=== PATIENT | female | born 1970 | race Caucasian/White ===

== ENCOUNTER → 2016-07-06 | Outpatient (CLI) | payer BC ==
--- NOTE | 2016-07-07 07:56 | MM ---
Reason for exam: screening (asymptomatic). Baseline mammogram. Physical Findings: Nurse did not find any significant physical abnormalities on exam. MG Screening Mammo w CAD Bilateral CC and MLO view(s) were taken. Finding: There is a 12 mm high density mass in the upper outer quadrant of the left breast. ASSESSMENT: Incomplete: need additional imaging evaluation, BI-RAD 0 RECOMMENDATION: Special view mammogram of the left breast. If lesion persists on supplemental views, image directed ultrasound is recommended. [facility] will attempt to contact patient to return for supplemental views and ultrasound if indicated.
== END | disposition home or self-care (01) ==
LOC: RADMAMWWP 09:54
PROVIDERS: ATTEND Family Medicine
DX: Z12.31 Encounter for screening mammogram for malignant neoplasm of breast (principal); R92.2 Inconclusive mammogram

== ENCOUNTER → 2016-07-15 | Outpatient (CLI) | payer BC ==
--- NOTE | 2016-07-15 11:06 | MM ---
Reason for exam: additional evaluation requested from abnormal screening. Last mammogram was performed less than 1 month ago. Physical Findings: Nurse did not find any significant physical abnormalities on exam. MG 3D Work Up W/Cad LT LM, spot compression MLO, and spot compression CC view(s) were taken of the left breast. Prior study comparison: July 06, 2016, bilateral MG screening mammo w CAD. The breast tissue is heterogeneously dense. This may lower the sensitivity of mammography. The upper outer focal asymmetry appear to disperse on spot tomosynthesis views. These results were verbally communicated with the patient and result sheet given to the patient on 07/15/16. ASSESSMENT: Incomplete: need additional imaging evaluation, BI-RAD 0 RECOMMENDATION: Ultrasound of the left breast. (upper outer quadrant)
--- NOTE | 2016-07-15 11:08 | USB ---
Reason for exam: additional evaluation requested from abnormal screening. US Breast Workup Limited LT Left breast ultrasound demonstrates a 0.36 x 0.22 x 0.50cm lesion too small to characterize at 3 o'clock and a 0.74 x 0.28 x 0.86cm mixed lesion at 1 o'clock, suspected intramammary lymph node. A precautionary 6 month follow up mammogram is recommended. These results were verbally communicated with the patient and result sheet given to the patient on 07/15/16. ASSESSMENT: Probably benign, BI-RAD 3 RECOMMENDATION: Follow-up diagnostic mammogram of the left breast in 6 months. ISAIAS
== END | disposition home or self-care (01) ==
LOC: RADMAMWWP 09:29
PROVIDERS: ATTEND Family Medicine
DX: R92.8 Other abnormal and inconclusive findings on diagnostic imaging of breast (principal)
CPT/HCPCS: 76642; G0206; G0279

== ENCOUNTER → 2017-01-13 | Outpatient (CLI) | payer BC ==
--- NOTE | 2017-01-13 11:36 | MM ---
Reason for exam: follow-up at short interval from prior study. Last mammogram was performed 6 months ago. History: Family history of breast cancer in mother at age 40. Physical Findings: Nurse did not find any significant physical abnormalities on exam. MG 3D Diag Mammo W/Cad LT CC and MLO view(s) were taken of the left breast. Prior study comparison: July 15, 2016, left breast MG 3d work up w/cad LT. July 06, 2016, bilateral MG screening mammo w CAD. The breast tissue is heterogeneously dense. This may lower the sensitivity of mammography. Finding: There are typically benign round, grouped/clustered calcifications in the left breast. There is no discrete abnormality. These results were verbally communicated with the patient and result sheet given to the patient on 01/13/17. ASSESSMENT: Benign, BI-RAD 2 RECOMMENDATION: Return to routine screening mammogram schedule for both breasts. Back on schedule.
== END | disposition home or self-care (01) ==
LOC: RADMAMWWP 10:47
PROVIDERS: ATTEND Family Medicine
DX: R92.8 Other abnormal and inconclusive findings on diagnostic imaging of breast (principal)
CPT/HCPCS: G0206; G0279

== ENCOUNTER → 2017-05-17 | Outpatient (CLI) | payer BC ==
[2017-05-17 11:17] LABS: EKG EKG PERFORMED
[2017-05-17 11:43] LABS: Appearance,Urine Clear (Clear); Bilirubin,Urine Negative (Negative); Glucose,Urine (UA) Negative (Negative); Ketones,Urine Negative (Negative); Leukocyte Esterase,Urine Negative (Negative); Nitrite,Urine Negative (Negative); Protein,Urine Negative (Negative); Specific Gravity,Urine 1.015 (1.001-1.035); UA Billing (MACRO vs. MICRO) CHEM; Urobilinogen,Urine <2.0 mg/dL (<2.0)
[2017-05-17 11:47] LABS: CH 29.3; CHCM 32.3; HCT 47.2 % (34.0-46.0); HGB 15.2 gm/dL (11.4-16.0); MCH 29.3 pg (25.0-35.0); MCHC 32.2 g/dL (31.0-37.0); Mean Platelet Volume 7.5; RBC 5.18 m/uL (3.80-5.40); RDW 13.9 % (11.5-15.5); WBC 11.4 k/uL (3.8-10.6)
[2017-05-17 11:51] LABS: Anion Gap 13 mmol/L; Blood Urea Nitrogen 17 mg/dL (7-17); Calcium 10.4 mg/dL (8.4-10.2); Carbon Dioxide 25 mmol/L (22-30); Chloride 104 mmol/L (98-107); Glucose 180 mg/dL (74-99); Non-African American GFR(MDRD) >60 (>60 ml/min/1.73 sqM); Potassium 4.3 mmol/L (3.5-5.1); Sodium 142 mmol/L (137-145)
--- NOTE | 2017-05-17 11:57 | XR ---
EXAMINATION TYPE: XR chest 2V DATE OF EXAM: 05/17/2017 COMPARISON: NONE HISTORY: Presurgical study. TECHNIQUE: Frontal and lateral views of the chest are obtained. FINDINGS: There is no focal air space opacity, pleural effusion, or pneumothorax seen. The cardiac silhouette size is within normal limits. The osseous structures are intact. IMPRESSION: No acute cardiopulmonary process.
[2017-05-17 12:03] LABS: Partial Thromboplastin Time 23.2 sec (22.0-30.0); Prothrombin Time 9.9 sec (9.0-12.0)
== END | disposition home or self-care (01) ==
LOC: LABPAT 11:03
PROVIDERS: ATTEND Orthopaedic Surgery Orthopaedic Surgery of the Spine
DX: Z01.810 Encounter for preprocedural cardiovascular examination (principal); M50.222 Other cervical disc displacement at C5-C6 level; Z01.818 Encounter for other preprocedural examination
CPT/HCPCS: 36415; 71020; 80048; 81003; 85027; 85610; 85730; 93005

== ENCOUNTER → 2018-08-21 | Outpatient (CLI) | payer BC ==
--- NOTE | 2018-08-23 08:49 | MR ---
EXAMINATION TYPE: MR cervical spine wo/w con DATE OF EXAM: 08/21/2018 COMPARISON: 04/11/2017 MRI cervical spine HISTORY: Cervicalgia / Radiculopathy CONTRAST: Performed utilizing 7.5 mL intravenous Gadavist gadolinium contrast. TECHNIQUE: Multiplanar multiecho imaging on a 3.0 Francheska magnet is performed through the cervical spin e. FINDINGS: The craniovertebral junction is normal. Vertebral body alignment is straightening of the c ervical spine. Previous kyphosis has diminished. No definite signal abnormality is identified in th e axial and sagittal planes. C7-T1: No focal disc herniation or significant disc bulge is evident. No spinal canal stenosis or n eural foraminal stenosis is present. C6-7: Right paracentral asymmetric disc bulge is present with mild to moderate anterior thecal sac co mpression. No cord contact or cord deformity is evident. No spinal canal stenosis present. Neural for amen are patent.. C5-6: Endplate spurring appears to be present. There is some associated disc material with mild anter ior thecal sac compression. This is in close approximation with spinal cord. No cord contact is evide nt. Some flattening of the right aspect of the spinal cord may be present. Cord flattening appears un changed from comparison. Moderate bilateral foraminal stenosis. Uncovertebral joint atrophy is presen t C4-5: No focal disc herniation or significant disc bulge is evident. No spinal canal stenosis is shawn dent. Left foramen is patent. Right foramen has mild to moderate foraminal narrowing due to uncoverte bral joint hypertrophy. C3-4: No focal disc herniation or significant disc bulge is evident. No spinal canal stenosis or ritchie ral foraminal stenosis is present. C2-3: No focal disc herniation or significant disc bulge is evident. No spinal canal stenosis or ritchie ral foraminal stenosis is present. Postcontrast imaging is performed. No suspicious enhancement is evident. IMPRESSIONS: 1. Endplate spurring with residual disc bulge C5-6 appears smaller than the comparison study. No cord contact is evident although some cord flattening appears to be present along the right anterior aspe ct. The appearance is changed comparison. 2. Right C4-5 foraminal narrowing due to uncovertebral joint hypertrophy. 3. Bilateral foraminal moderate narrowing C5-6 due to uncovertebral joint hypertrophy. 4. Right paracentral disc bulging C6-7 with mild anterior thecal sac compression without cord contact or stenosis.
== END | disposition home or self-care (01) ==
LOC: RADMRIMAIN 10:08
PROVIDERS: ATTEND Orthopaedic Surgery Orthopaedic Surgery of the Spine
DX: M48.02 Spinal stenosis, cervical region (principal); M50.122 Cervical disc disorder at C5-C6 level with radiculopathy; G95.29 Other cord compression
CPT/HCPCS: 82565; 84520; 72156; A9585

== ENCOUNTER 2020-10-26 11:17 | Observation (INO) | payer BC ==
[2020-10-26] MEDS ORDERED: ASPIRIN 81 MG PO STA (11:31)
[2020-10-26] MEDS ORDERED: NITROGLYCERIN SL TABS 0.4 MG TAB SUBLINGUAL STA (11:31)
--- NOTE | 2020-10-26 11:38 | ED ---
General Adult HPI - General Chief complaint: Chest Pain Stated complaint: COVID+, Chest Pain Time Seen by Provider: 10/26/20 11:24 Source: patient, EMS, RN notes reviewed Mode of arrival: EMS Limitations: no limitations - History of Present Illness Initial comments: Patient is a pleasant 5-year-old female presenting to the emergency Department with complaints of chest discomfort. Patient has been having COVID-19 symptoms and tested positive for close to 2 weeks now. Patient has been having chest discomfort for the past 5 days, symptoms worsen today. Discomfort feels sharp without radiation. Patient has had some cough and shortness of breath. Patient has had fatigue and myalgias. No vomiting or diaphoresis. - Related Data Home Medications Medication Instructions Recorded Confirmed Bisoprolol Fumarate/Hctz 1 tab PO QAM 12/12/14 06/01/17 [Bisoprolol-Hctz 5-6.25 mg Tab] Naproxen 250 mg PO BID PRN 12/12/14 06/01/17 HYDROcodone/APAP 5-325MG [[place] 1 tab PO Q6HR PRN 05/30/17 06/01/17 5-325] Zolpidem [Ambien] 10 mg PO HS PRN 05/30/17 06/01/17 traMADol HCl [Ultram] 50 mg PO Q6HR PRN 05/30/17 06/01/17 Allergies Allergy/AdvReac Type Severity Reaction Status Date / Time Penicillins Allergy Rash/Hives. Verified 05/30/17 09:56 SOB Review of Systems ROS Statement: Those systems with pertinent positive or pertinent negative responses have been documented in the HPI. ROS Other: All systems not noted in ROS Statement are negative. Constitutional: Reports: chills Eyes: Denies: eye pain ENT: Denies: ear pain Respiratory: Reports: cough, dyspnea Cardiovascular: Reports: chest pain Endocrine: Reports: fatigue Gastrointestinal: Denies: abdominal pain, vomiting Genitourinary: Denies: dysuria Musculoskeletal: Denies: arthralgia Skin: Denies: rash Neurological: Denies: weakness Past Medical History Past Medical History: Asthma, Hypertension Additional Past Medical History / Comment(s): pain in neck and left arm, N/T left arm, steroid injection Apr and May,asthma as a child History of Any Multi-Drug Resistant Organisms: None Reported Past Surgical History: Coronary Bypass/CABG, Uterine Ablation Additional Past Surgical History / Comment(s): sinus surg, uterine ablation 2014 Past Anesthesia/Blood Transfusion Reactions: No Reported Reaction Additional Past Anesthesia/Blood Transfusion Reaction / Comment(s): no hx blood transfusion Past Psychological History: No Psychological Hx Reported Past Alcohol Use History: Occasional Past Drug Use History: None Reported - Past Family History Mother Family Medical History: Cancer Additional Family Medical History / Comment(s): lung Father Family Medical History: No Reported History General Exam Limitations: no limitations General appearance: alert, in no apparent distress Head exam: Present: atraumatic Eye exam: Present: normal appearance Neck exam: Present: normal inspection Respiratory exam: Present: normal lung sounds bilaterally, chest wall tenderness Cardiovascular Exam: Present: regular rate, normal rhythm, normal heart sounds Expanded Peripheral pulses: 2+: Radial (R), Radial (L), Dorsalis Pedis (R), Dorsalis Pedis (L) GI/Abdominal exam: Present: soft. Absent: tenderness Extremities exam: Present: normal inspection. Absent: pedal edema, calf tenderness Neurological exam: Present: alert Psychiatric exam: Present: normal affect, normal mood Skin exam: Present: normal color Course Vital Signs 10/26/20 10/26/20 10/26/20 11:19 11:24 11:45 Temperature 98.6 F Pulse Rate 110 H Respiratory 20 20 Rate Blood Pressure 136/86 86/56 O2 Sat by Pulse 94 L Oximetry 10/26/20 10/26/20 11:47 11:58 Temperature Pulse Rate Respiratory Rate Blood Pressure 56/37 96/58 O2 Sat by Pulse Oximetry EKG Findings - EKG Comments: EKG Findings:: Sinus tachycardia with a rate of 111. IL 144. QRS 86. QT 338. QTC 49. Normal axis. Normal QRS and no acute ST change. Medical Decision Making - Medical Decision Making Patient reevaluated and symptoms have improved. Patient resting comfortably in bed. Patient and family updated on results and plan. Case was discussed with Dr. Ladd, who will admit covering for Dr. Florian. - Lab Data Result diagrams: 10/26/20 11:34 10/26/20 12:06 Lab Results 10/26/20 10/26/20 10/26/20 Range/Units 11:34 12:06 12:06 WBC 12.5 H (3.8-10.6) k/uL RBC 4.98 (3.80-5.40) m/uL Hgb 15.5 (11.4-16.0) gm/dL Hct 44.5 (34.0-46.0) % MCV 89.2 (80.0-100.0) fL MCH 31.1 (25.0-35.0) pg MCHC 34.8 (31.0-37.0) g/dL RDW 12.4 (11.5-15.5) % Plt Count 265 (150-450) k/uL MPV 7.8 Neutrophils % 86 % Lymphocytes % 6 % Monocytes % 5 % Eosinophils % 1 % Basophils % 0 % Neutrophils # 10.8 H (1.3-7.7) k/uL Lymphocytes # 0.8 L (1.0-4.8) k/uL Monocytes # 0.7 (0-1.0) k/uL Eosinophils # 0.1 (0-0.7) k/uL Basophils # 0.1 (0-0.2) k/uL PT (9.0-12.0) sec INR (<1.2) APTT (22.0-30.0) sec D-Dimer (<0.60) mg/L FEU Sodium 138 (137-145) mmol/L Potassium 4.2 (3.5-5.1) mmol/L Chloride 101 (98-107) mmol/L Carbon Dioxide 28 (22-30) mmol/L Anion Gap 9 mmol/L BUN 16 (7-17) mg/dL Creatinine 0.71 (0.52-1.04) mg/dL Est GFR (CKD-EPI)AfAm >90 (>60 ml/min/1.73 sqM) Est GFR (CKD-EPI)NonAf >90 (>60 ml/min/1.73 sqM) Glucose 130 H (74-99) mg/dL Calcium 8.8 (8.4-10.2) mg/dL Magnesium 2.1 (1.6-2.3) mg/dL Total Bilirubin 1.2 (0.2-1.3) mg/dL AST 23 (14-36) U/L ALT 17 (4-34) U/L Alkaline Phosphatase 82 (38-126) U/L Troponin I <0.012 (0.000-0.034) ng/mL C-Reactive Protein 7.4 H (<1.0) mg/dL Total Protein 6.4 (6.3-8.2) g/dL Albumin 3.6 (3.5-5.0) g/dL 10/26/20 Range/Units 12:06 WBC (3.8-10.6) k/uL RBC (3.80-5.40) m/uL Hgb (11.4-16.0) gm/dL Hct (34.0-46.0) % MCV (80.0-100.0) fL MCH (25.0-35.0) pg MCHC (31.0-37.0) g/dL RDW (11.5-15.5) % Plt Count (150-450) k/uL MPV Neutrophils % % Lymphocytes % % Monocytes % % Eosinophils % % Basophils % % Neutrophils # (1.3-7.7) k/uL Lymphocytes # (1.0-4.8) k/uL Monocytes # (0-1.0) k/uL Eosinophils # (0-0.7) k/uL Basophils # (0-0.2) k/uL PT 10.0 (9.0-12.0) sec INR 0.9 (<1.2) APTT 20.9 L (22.0-30.0) sec D-Dimer 0.59 (<0.60) mg/L FEU Sodium (137-145) mmol/L Potassium (3.5-5.1) mmol/L Chloride (98-107) mmol/L Carbon Dioxide (22-30) mmol/L Anion Gap mmol/L BUN (7-17) mg/dL Creatinine (0.52-1.04) mg/dL Est GFR (CKD-EPI)AfAm (>60 ml/min/1.73 sqM) Est GFR (CKD-EPI)NonAf (>60 ml/min/1.73 sqM) Glucose (74-99) mg/dL Calcium (8.4-10.2) mg/dL Magnesium (1.6-2.3) mg/dL Total Bilirubin (0.2-1.3) mg/dL AST (14-36) U/L ALT (4-34) U/L Alkaline Phosphatase (38-126) U/L Troponin I (0.000-0.034) ng/mL C-Reactive Protein (<1.0) mg/dL Total Protein (6.3-8.2) g/dL Albumin (3.5-5.0) g/dL - Radiology Data Radiology results: image reviewed (X-ray does show patchy infiltrates) Disposition Clinical Impression: Chest pain Disposition: ADMITTED IP TO THIS HOSP Is patient prescribed a controlled substance at d/c from ED?: No Referrals: Surya Florian MD [Primary Care Provider] - 1-2 days Decision Time: 13:19
[2020-10-26 11:43] LABS: Basophils # (A) 0.1 k/uL (0-0.2); Basophils % (A) 0 %; Eosinophils # (A) 0.1 k/uL (0-0.7); Eosinophils % (A) 1 %; HCT 44.5 % (34.0-46.0); HGB 15.5 gm/dL (11.4-16.0); Lymphocytes # (A) 0.8 k/uL (1.0-4.8); Lymphocytes % (A) 6 %; MCH 31.1 pg (25.0-35.0); MCHC 34.8 g/dL (31.0-37.0); MCV 89.2 fL (80.0-100.0); Mean Platelet Volume 7.8; Monocytes # (A) 0.7 k/uL (0-1.0); Monocytes % (A) 5 %; Neutrophils # (A) 10.8 k/uL (1.3-7.7); Neutrophils % (A) 86 %; Platelet Count 265 k/uL (150-450); RBC 4.98 m/uL (3.80-5.40); RDW 12.4 % (11.5-15.5); WBC 12.5 k/uL (3.8-10.6)
[2020-10-26 12:31] LABS: ALT 17 U/L (4-34); AST 23 U/L (14-36); African American GFR (CKD) >90 (>60 ml/min/1.73 sqM); Albumin 3.6 g/dL (3.5-5.0); Alkaline Phosphatase 82 U/L (38-126); Anion Gap 9 mmol/L; Blood Urea Nitrogen 16 mg/dL (7-17); C Reactive Protein 7.4 mg/dL (<1.0); Calcium 8.8 mg/dL (8.4-10.2); Carbon Dioxide 28 mmol/L (22-30); Chloride 101 mmol/L (98-107); Glucose 130 mg/dL (74-99); Magnesium 2.1 mg/dL (1.6-2.3); Non-African American GFR(CKD) >90 (>60 ml/min/1.73 sqM); Potassium 4.2 mmol/L (3.5-5.1); Sodium 138 mmol/L (137-145); Total Bilirubin 1.2 mg/dL (0.2-1.3); Total Protein 6.4 g/dL (6.3-8.2)
[2020-10-26 12:45] LABS: D-Dimer 0.59 mg/L FEU (<0.60); INR 0.9 (<1.2)
[2020-10-26 12:46] LABS: Partial Thromboplastin Time 20.9 sec (22.0-30.0)
--- NOTE | 2020-10-26 13:01 | XR ---
EXAMINATION TYPE: XR chest 2V DATE OF EXAM: 10/26/2020 COMPARISON: Chest x-ray 05/17/2017 HISTORY: Chest pain and cough TECHNIQUE: Frontal and lateral views of the chest are obtained. FINDINGS: Bilateral patchy airspace disease is present peripherally. Postop change noted the cervica l spine. No pneumothorax or pleural effusion. Cardiac mediastinal silhouette is within normal limits. There are overlying leads. IMPRESSION: Correlate for pneumonia, consider Covid infection
[2020-10-26] MEDS ORDERED: NITROGLYCERIN SL TABS 0.4 MG TAB SUBLINGUAL PRN (13:19)
--- NOTE | 2020-10-26 13:59 | P.CRDCN ---
History of Present Illness History of present illness: HISTORY OF PRESENTING ILLNESS She is a pleasant 50-year-old female with history of hypertension, asthma as a child, early family history of coronary artery disease who presents secondary to chest pain. Patient admits she had COVID-19 pneumonia proximally 2 weeks ago with fevers, chills, cough and shortness breath. Unfortunately over the last 4- 5 days she has had worsening chest pressure sensation which has been off and on. She then had an episode this morning which lasted for approximately 3 hours with chest pressure associated with nausea, diaphoresis, shortness of breath which was fairly persistent. She was sitting next a couch and then started feeling lightheaded and slumped over during this episode. She therefore called EMS and EMS gave her one nitroglycerin with improvement immediately after nitroglycerin and by the time she got to the ER still having some chest disco mfort and therefore second nitroglycerin was given which completely improved the chest pain. She denies any prior similar episodes. She has been coughing and has some reproducible chest pain however states the pressure has been different over the last 4-5 days. The only thing somewhat mildly atypical is that the pressure felt worse with deep inspiration. She believes her cholesterol has been well controlled in the past. Family history of mother with OH in her 40s. She had workup with EKG showing sinus tachycardia, no my axis, no significant ST or T-wave abnormalities. Troponin 1 was negative and d-dimer was 0.59. Coronal virus PCR was positive. REVIEW OF SYSTEMS At the time of my exam: CONSTITUTIONAL: Denies fever or chills. CARDIOVASCULAR: +chest pain, +shortness of breath, no orthopnea, PND or palpitations. RESPIRATORY: +cough. GASTROINTESTINAL: Denies abdominal pain, diarrhea, constipation, nausea or vomiting. MUSCULOSKELETAL: Denies myalgias. NEUROLOGIC: Denies numbness, tingling or weakness. ENDOCRINE: Denies fatigue, weight change, polydipsia or polyurina. GENITOURINARY: Denies burning, hematuria or urgency with micturation. HEMATOLOGIC: Denies history of anemia or bleeding. PHYSICAL EXAMINATION Vital signs reviewed. CONSTITUTIONAL: No apparent distress. HEENT: Head is normocephalic. Pupils are equal, round. Sclerae anicteric. Mucous membranes of the mouth are moist. No JVD. No carotid bruit. CHEST EXAMINATION: Diffuse rhonchi and mild wheeze HEART EXAMINATION: Regular rate and rhythm. S1, S2 heard. No murmurs, gallops or rub. There is some reproducibility of chest pain however not the same as her chest pressure ABDOMEN: Soft, nontender. Positive bowel sounds. EXTREMITIES: 2+ peripheral pulses, no lower extremity edema and no calf tenderness. NEUROLOGIC EXAMINATION: Patient is awake, alert and oriented x3. ASSESSMENT 1. Typical chest pain concerning for angina, associated nausea, diaphoresis and shortness breath improved with nitroglycerin 2. Secondary reproducible chest pain however not the same as her chest pressure concerning for angina, likely related to cough 3. COVID-19 pneumonia for the past 2 weeks 4. History of asthma 5. Sinus tachycardia PLAN Patient's chest pain appears somewhat concerning for angina. Given her active COVID-19 infection we will check echocardiogram and treat medically with aspirin, beta nilsa and as needed nitroglycerin. Trend troponins. Further recommendations to follow regarding possible stress test however with active COVID-19 infection would attempt to delay this if possible. Past Medical History Past Medical History: Asthma, Hypertension Additional Past Medical History / Comment(s): pain in neck and left arm, N/T le ft arm, steroid injection Apr and May,asthma as a child History of Any Multi-Drug Resistant Organisms: None Reported Past Surgical History: Coronary Bypass/CABG, Uterine Ablation Additional Past Surgical History / Comment(s): sinus surg, uterine ablation 2014 Past Anesthesia/Blood Transfusion Reactions: No Reported Reaction Additional Past Anesthesia/Blood Transfusion Reaction / Comment(s): no hx blood transfusion Past Psychological History: No Psychological Hx Reported Past Alcohol Use History: Occasional Past Drug Use History: None Reported - Past Family History Mother Family Medical History: Cancer Additional Family Medical History / Comment(s): lung Father Family Medical History: No Reported History Medications and Allergies Home Medications Medication Instructions Recorded Confirmed Type amLODIPine BESYLATE/BENAZEPRIL 1 cap PO DAILY 10/26/20 10/26/20 History [amLODIPine BESYLATE/BENAZEPRIL 5-10 MG] Allergies Allergy/AdvReac Type Severity Reaction Status Date / Time Penicillins Allergy Rash/Hives. Verified 10/26/20 13:44 SOB Physical Exam Vitals: Vital Signs Temp Pulse Resp BP Pulse Ox 10/26/20 13:52 87 16 128/84 95 10/26/20 11:58 96/58 10/26/20 11:47 56/37 10/26/20 11:45 86/56 10/26/20 11:24 20 10/26/20 11:19 98.6 F 110 H 20 136/86 94 L Intake and Output 10/25/20 10/26/20 10/26/20 22:59 06:59 14:59 Other: Weight 62.142 kg Results 10/26/20 11:34 10/26/20 12:06 Cardiac Enzymes 10/26/20 10/26/20 Range/Units 12:06 12:06 AST 23 (14-36) U/L Troponin I <0.012 (0.000-0.034) ng/mL Coagulation 10/26/20 Range/Units 12:06 PT 10.0 (9.0-12.0) sec APTT 20.9 L (22.0-30.0) sec CBC 10/26/20 Range/Units 11:34 WBC 12.5 H (3.8-10.6) k/uL RBC 4.98 (3.80-5.40) m/uL Hgb 15.5 (11.4-16.0) gm/dL Hct 44.5 (34.0-46.0) % Plt Count 265 (150-450) k/uL Comprehensive Metabolic Panel 10/26/20 Range/Units 12:06 Sodium 138 (137-145) mmol/L Potassium 4.2 (3.5-5.1) mmol/L Chloride 101 (98-107) mmol/L Carbon Dioxide 28 (22-30) mmol/L BUN 16 (7-17) mg/dL Creatinine 0.71 (0.52-1.04) mg/dL Glucose 130 H (74-99) mg/dL Calcium 8.8 (8.4-10.2) mg/dL AST 23 (14-36) U/L ALT 17 (4-34) U/L Alkaline Phosphatase 82 (38-126) U/L Total Protein 6.4 (6.3-8.2) g/dL Albumin 3.6 (3.5-5.0) g/dL Current Medications Generic Name Dose Route Start Last Admin Trade Name Freq PRN Reason Stop Dose Admin Aspirin 325 mg 10/27/20 09:00 Aspirin 325 Mg Tab PO DAILY JALEN Nitroglycerin 0.4 mg 10/26/20 13:19 Nitroglycerin Sl Tabs 0.4 Mg Tab SUBLINGUAL Q5M PRN Chest Pain Intake and Output 10/25/20 10/26/20 10/26/20 22:59 06:59 14:59 Other: Weight 62.142 kg Patient Weight 10/27/20 06:59 Weight 62.142 kg 10/26/20 11:34 10/26/20 12:06
[2020-10-26] MEDS: METOPROLOL SUCCINATE (ER) 25 MG TAB.ER.24H PO SCH (15:49)
[2020-10-26] MEDS ORDERED: TEMAZEPAM 15 MG CAP PO PRN (17:28)
[2020-10-26] MEDS ORDERED: ALPRAZolam 0.25 MG TAB PO PRN (17:28)
[2020-10-26] MEDS: ENOXAPARIN 40 MG/0.4 ML SYRINGE SQ SCH (17:54)
[2020-10-26] MEDS: CHOLECALCIFEROL 25 MCG (1000 IU) TABLET PO SCH (17:54)
[2020-10-26] MEDS: ZINC SULFATE 220 MG CAP PO SCH (17:54)
[2020-10-26] MEDS: ASCORBIC ACID 500 MG TAB PO SCH (17:54)
--- NOTE | 2020-10-26 17:54 | CT ---
EXAMINATION TYPE: CT chest wo con DATE OF EXAM: 10/26/2020 COMPARISON: None HISTORY: chest pain, SOB, +covid CT DLP: 199.3 mGycm Automated exposure control for dose reduction was used. Images were obtained from the thoracic inlet to the diaphragm with no contrast. There is some patchy peripheral pulmonary interstitial infiltrates bilaterally. Heart size is normal. There is no pericardial effusion. There is no pleural effusion. There are no hilar masses. There are small mediastinal lymph nodes up to 1 cm. Thoracic aorta shows no evidence of aneurysm. Thoracic spine is intact. There is no compression fracture. Sternum is intact. The ribs appear intact . Upper abdominal soft tissues are intact. IMPRESSION: Moderate patchy peripheral pulmonary infiltrates are predominantly interstitial. Normal heart.
[2020-10-26] MEDS ORDERED: ACETAMINOPHEN TAB 325 MG TAB PO PRN (18:00)
[2020-10-26 19:08] LABS: ALT 17 U/L (4-34); AST 23 U/L (14-36); African American GFR (CKD) >90 (>60 ml/min/1.73 sqM); Albumin 3.7 g/dL (3.5-5.0); Albumin/Globulin Ratio 1.3; Alkaline Phosphatase 87 U/L (38-126); Anion Gap 11 mmol/L; Blood Urea Nitrogen 15 mg/dL (7-17); Calcium 8.8 mg/dL (8.4-10.2); Carbon Dioxide 27 mmol/L (22-30); Chloride 99 mmol/L (98-107); Globulin 2.8 g/dL; Glucose 117 mg/dL (74-99); Non-African American GFR(CKD) >90 (>60 ml/min/1.73 sqM); Sodium 137 mmol/L (137-145); Total Bilirubin 1.1 mg/dL (0.2-1.3); Total Protein 6.5 g/dL (6.3-8.2)
[2020-10-26 19:09] LABS: Potassium 4.1 mmol/L (3.5-5.1)
--- NOTE | 2020-10-26 19:32 | HP ---
HISTORY AND PHYSICAL CHIEF COMPLAINTS: Chest pain and shortness of breath. HISTORY OF PRESENT ILLNESS: This 50-year-old woman with a past medical history of multiple medical problems including asthma, hypertension, history of DJD, history of CAD, history of uterine ablation, being followed by Dr. Florian in the outpatient setting, admitted with complaints of chest pain. The pain is felt in the anterior part of the chest. Patient has also has incessant cough. The patient was recently diagnosed to be Covid positive about 2 weeks. The patient has some chest discomfort also because which is worsening and the patient came to [facility] and was admitted to the hospital for further evaluation and treatment. There is no history of fever, rigors or chills. No history of headache. The white count is 12.5. D-dimer is 0.59. Covid-19 is positive. Troponins are negative and cardiology evaluation in progress. The EKG done showed incomplete right bundle block and ST-T changes. There is no history of fever, rigors, chills at this time. The chest x-ray which I reviewed personally showed possible bilateral pneumonia. Interstitial pneumonia suggestive of Covid-19. There is no history of fever, rigors, chills at this time. PAST MEDICAL HISTORY: History of asthma, hypertension, history of CAD, CABG, history of recent Covid-19. MEDICATIONS: Norvasc. ALLERGIES: PENICILLIN. FAMILY HISTORY: History of lung cancer in the family. SOCIAL HISTORY: Previous history of smoking. Occasional alcohol intake. REVIEW OF SYSTEMS: ENT: No diminished vision. No diminished hearing. Cardiovascular system: As mentioned earlier. Respiration: As mentioned earlier. GI as mentioned earlier. no dysuria. NERVOUS SYSTEMS: No numbness or weakness. ALLERGY/IMMUNOLOGY: No asthma or hayfever. MUSCULOSKELETAL as mentioned earlier. HEMATOLOGY/ONCOLOGY: No history of anemia. ENDOCRINE: No history of diabetes or hypothyroidism. CONSTITUTIONAL: As mentioned earlier. DERMATOLOGY: Negative. RHEUMATOLOGY: Negative. PSYCHIATRY: As mentioned earlier. PHYSICAL EXAMINATION: Alert and oriented times three. Pulse 105. Blood pressure 176/72, respiration 20, temperature normal, pulse ox 94% on room air. HEENT: Conjunctivae normal. NECK: No JVD. CARDIOVASCULAR: S1, S2 muffled. RESPIRATORY: Breath sounds diminished in the bases. A few scattered rhonchi. ABDOMEN: Soft, nontender. LEGS are no edema. No swelling. NERVOUS SYSTEM: Higher functions as mentioned earlier. Moves all four limbs. No focal deficits. LYMPHATICS: No lymph nodes palpable in the neck, axilla or groin. JOINTS: No active deforming arthropathy. LAB STUDIES: WBC 12.2, hemoglobin 15.5 and C-reactive protein 7.44. COVID-19 is positive. ASSESSMENT: 1. Chest pain for evaluation, rule out unstable angina. 2. Acute COVID-19 infection with possible acute pneumonia with possible pleurisy. 3. Increased WBC. 4. Increased random blood sugar. 5. Increased CRP. 6. History of asthma. 7. History of hypertension. 8. History of degenerative joint disease. 9. History of coronary artery disease, coronary artery bypass grafting. 10.History of uterine ablation. 11.History of nicotine dependence. RECOMMENDATIONS AND DISCUSSION: This 50-year-old woman who presented with multiple complex medical issues, we will monitor the patient closely. Continue the current medications, management and symptomatic treatment. Otherwise, at this time, resume home medications. I would also recommend a serum procalcitonin as well. CT scan of the chest. Guarded prognosis because of multiple complex medical issues. Further recommendations to follow. Lovenox and zinc and usual medications for Covid 19. Further recommendations to follow. MMODL / IJN: [id number] /
[2020-10-26] MEDS: HYDROcodone/APAP 5-325MG 1 EACH TAB PO PRN (23:02)
[2020-10-26 23:31] LABS: Appearance,Urine Cloudy (Clear); Bacteria,Urine Occasional /hpf; Bilirubin,Urine Negative (Negative); Blood,Urine Negative (Negative); Color,Urine Yellow; Glucose,Urine (UA) Negative (Negative); Ketones,Urine 3+ (Negative); Leukocyte Esterase,Urine Negative (Negative); Mucus,Urine Many /hpf; Nitrite,Urine Negative (Negative); PH, Urine 5.5 (5.0-8.0); Protein,Urine 1+ (Negative); RBC,Urine 1 /hpf (0-5); Specific Gravity,Urine 1.024 (1.001-1.035); Squamous Epithelial Cell,Urine 2 /hpf (0-4); Urobilinogen,Urine <2.0 mg/dL (<2.0); WBC,Urine 2 /hpf (0-5)
[2020-10-27] MEDS ORDERED: ASPIRIN 325 MG TAB PO SCH (09:00)
[2020-10-27 09:07] LABS: Basophils # (A) 0.02 X 10*3/uL (0.00-0.10); Basophils % (A) 0.3 %; Eosinophils # (A) 0.17 X 10*3/uL (0.04-0.35); Eosinophils % (A) 2.6 %; HCT 41.7 % (37.2-46.3); HGB 13.7 g/dL (12.0-15.0); Lymphocytes # (A) 1.04 X 10*3/uL (0.90-5.00); Lymphocytes % (A) 15.7 %; MCH 29.8 pg (27.0-32.0); MCHC 32.9 g/dL (32.0-37.0); MCV 90.7 fL (80.0-97.0); Mean Platelet Volume 9.9 fL (9.5-12.2); Monocytes % (A) 15.1 %; Neutrophils # (A) 4.36 X 10*3/uL (1.80-7.70); Neutrophils % (A) 65.8 %; Platelet Count 279 X 10*3/uL (140-440); RDW 12.1 % (11.5-14.5); WBC 6.62 X 10*3/uL (4.50-10.00)
[2020-10-27 09:08] LABS: Chol/HDL Ratio 3.71; LDL Cholesterol,Calculated 80.2 mg/dL (0.0-131.0); VLDL Calculation 22.8 mg/dL (5.00-40.00)
[2020-10-27] MEDS: ENOXAPARIN 40 MG/0.4 ML SYRINGE SQ SCH (10:40)
[2020-10-27] MEDS: HYDROcodone/APAP 5-325MG 1 EACH TAB PO PRN ×2 (10:40→19:34)
[2020-10-27] MEDS: lisinopriL 10 MG TAB PO SCH (10:41)
[2020-10-27] MEDS: CHOLECALCIFEROL 25 MCG (1000 IU) TABLET PO SCH (10:41)
[2020-10-27] MEDS: METOPROLOL SUCCINATE (ER) 25 MG TAB.ER.24H PO SCH (10:41)
[2020-10-27] MEDS: ZINC SULFATE 220 MG CAP PO SCH (10:41)
[2020-10-27] MEDS: ASCORBIC ACID 500 MG TAB PO SCH (10:42)
[2020-10-27] MEDS: amLODIPine 5 MG TAB PO SCH (10:43)
[2020-10-27] MEDS: PANTOPRAZOLE 40 MG TABLET PO SCH (10:43)
--- NOTE | 2020-10-27 12:42 | P.PN ---
Subjective She is a pleasant 50-year-old female with history of hypertension, asthma as a child, early family history of coronary artery disease who presents secondary to chest pain. Patient admits she had COVID-19 pneumonia proximally 2 weeks ago with fevers, chills, cough and shortness breath. Unfortunately over the last 4- 5 days she has had worsening chest pressure sensation which has been off and on. She then had an episode this morning which lasted for approximately 3 hours with chest pressure associated with nausea, diaphoresis, shortness of breath which was fairly persistent. She was sitting next a couch and then started feeling lightheaded and slumped over during this episode. She therefore called EMS and EMS gave her one nitroglycerin with improvement immediately after nitroglycerin and by the time she got to the ER still having some chest discomfort and therefore second nitroglycerin was given which completely improved the chest pain. She denies any prior similar episodes. She has been coughing and has some reproducible chest pain however states the pressure has been different over the last 4-5 days. The only thing somewhat mildly atypical is that the pressure felt worse with deep inspiration. She believes her cholesterol has been well controlled in the past. Family history of mother with IA in her 40s. She had workup with EKG showing sinus tachycardia, no my axis, no significant ST or T-wave abnormalities. Troponin 1 was negative and d-dimer was 0.59. Coronal virus PCR was positive. 10/27/20 Patient seen and examined at bedside. State she continues to have chest pain, but improved from yesterday. It worsens when patient coughs or takes a deep breath. Laboratory data reviewed CBC unremarkable, troponins are negative 3, covid-19 negative, renal functions stable. BP 117/74, heart rate 88, afebrile, oxygen saturation 74% on room air. Patient currently being maintained on amlodipine 5 mg daily, aspirin daily, lisinopril 10 mg daily, metoprolol succinate 12.5 mg daily PHYSICAL EXAMINATION Vital signs reviewed. CONSTITUTIONAL: No apparent distress. HEENT: Head is normocephalic No JVD. No carotid bruit. CHEST EXAMINATION: Diffuse rhonchi and mild wheeze HEART EXAMINATION: Regular rate and rhythm. S1, S2 heard. No murmurs, gallops or rub. There is some reproducibility of chest pain however not the same as her chest pressure ABDOMEN: Soft, nontender. Positive bowel sounds. EXTREMITIES: 2+ peripheral pulses, no lower extremity edema and no calf tenderness. NEUROLOGIC EXAMINATION: Patient is awake, alert and oriented x3. ASSESSMENT Chest pain, atypical chest pain- acute coronary syndrome has been ruled out. Secondary reproducible chest pain however not the same as her chest pressure concerning for angina, likely related to cough COVID-19 History of asthma Sinus tachycardia PLAN 2D echocardiogram obtained and we will review results- if no acute findings on echocardiogram, no further cardiac workup indicated at this time. Continue aspirin, metoprolol succinate 12.5mg daily, amlodipine 5mg daily, lisinopril 10mg daily. Patient can follow up with stress test outpatient in the office. Objective - Vital Signs Vital signs: Vital Signs Temp 98.1 F 10/27/20 08:12 Pulse 88 10/27/20 08:12 Resp 16 10/27/20 08:12 BP 117/74 10/27/20 08:12 Pulse Ox 94 L 10/27/20 08:12 Intake & Output 10/26/20 10/27/20 10/27/20 18:59 06:59 18:59 Weight 62.142 kg 62.142 kg - Labs CBC & Chem 7: 10/27/20 04:46 10/26/20 18:42 Labs: Abnormal Lab Results - Last 24 Hours (Table) 10/26/20 10/26/20 10/26/20 Range/Units 11:34 12:06 12:06 WBC 12.5 H (3.8-10.6) k/uL Neutrophils # 10.8 H (1.3-7.7) k/uL Lymphocytes # 0.8 L (1.0-4.8) k/uL APTT 20.9 L (22.0-30.0) sec Glucose 130 H (74-99) mg/dL C-Reactive Protein 7.4 H (<1.0) mg/dL HDL Cholesterol (40.0-60.0) mg/dL Procalcitonin (0.02-0.09) ng/mL Urine Appearance (Clear) Urine Protein (Negative) Urine Ketones (Negative) Urine Bacteria (None) /hpf Urine Mucus (None) /hpf Coronavirus (PCR) (Not Detectd) 10/26/20 10/26/20 10/26/20 Range/Units 13:24 18:42 18:42 WBC (3.8-10.6) k/uL Neutrophils # (1.3-7.7) k/uL Lymphocytes # (1.0-4.8) k/uL APTT (22.0-30.0) sec Glucose 117 H (74-99) mg/dL C-Reactive Protein (<1.0) mg/dL HDL Cholesterol (40.0-60.0) mg/dL Procalcitonin 0.22 H (0.02-0.09) ng/mL Urine Appearance (Clear) Urine Protein (Negative) Urine Ketones (Negative) Urine Bacteria (None) /hpf Urine Mucus (None) /hpf Coronavirus (PCR) Detected A (Not Detectd) 10/26/20 10/27/20 Range/Units 22:56 04:46 WBC (3.8-10.6) k/uL Neutrophils # (1.3-7.7) k/uL Lymphocytes # (1.0-4.8) k/uL APTT (22.0-30.0) sec Glucose (74-99) mg/dL C-Reactive Protein (<1.0) mg/dL HDL Cholesterol 38.0 L (40.0-60.0) mg/dL Procalcitonin (0.02-0.09) ng/mL Urine Appearance Cloudy H (Clear) Urine Protein 1+ H (Negative) Urine Ketones 3+ H (Negative) Urine Bacteria Occasional H (None) /hpf Urine Mucus Many H (None) /hpf Coronavirus (PCR) (Not Detectd)
--- NOTE | 2020-10-27 20:36 | P.HPIM ---
History of Present Illness H&P Date: 10/27/20 Chief Complaint: Chest pain and Covid Positivity. History and physical on a 50-year-old white female essentially admitted for chest pressure with shortness of breath. Unfortunately, she has element of Covid positivity testing after being exposed from her daughter. The patient is now admitted for appropriate chest pain. Appreciate cardiology input. She is essentially admitted for rule out myocardial infarction. She seems to be doing well although complaining of some mild congestion and cough. No voiding difficult these. No significant nausea, vomiting or diarrhea. Review of Systems Constitutional: Denies chills, Denies fever Eyes: denies blurred vision, denies pain Ears, nose, mouth and throat: Denies headache, Denies sore throat Cardiovascular: Reports as per HPI, Reports chest pain, Denies shortness of breath Respiratory: Denies cough Gastrointestinal: Denies abdominal pain, Denies diarrhea, Denies nausea, Denies vomiting Musculoskeletal: Denies myalgias Past Medical History Past Medical History: Asthma, Hypertension Additional Past Medical History / Comment(s): pain in neck and left arm, N/T le ft arm, steroid injection Apr and May,asthma as a child History of Any Multi-Drug Resistant Organisms: None Reported Past Surgical History: Coronary Bypass/CABG, Uterine Ablation Additional Past Surgical History / Comment(s): sinus surg, uterine ablation 2014 Past Anesthesia/Blood Transfusion Reactions: No Reported Reaction Additional Past Anesthesia/Blood Transfusion Reaction / Comment(s): no hx blood transfusion Past Psychological History: No Psychological Hx Reported Smoking Status: Never smoker Past Alcohol Use History: Occasional Additional Past Alcohol Use History / Comment(s): quit smoking 2005,smoked approx 20 yrs,<1ppd Past Drug Use History: None Reported - Past Family History Mother Family Medical History: Cancer Additional Family Medical History / Comment(s): lung Father Family Medical History: No Reported History Medications and Allergies Home Medications Medication Instructions Recorded Confirmed Type amLODIPine BESYLATE/BENAZEPRIL 1 cap PO DAILY 10/26/20 10/26/20 History [amLODIPine BESYLATE/BENAZEPRIL 5-10 MG] Allergies Allergy/AdvReac Type Severity Reaction Status Date / Time Penicillins Allergy Rash/Hives. Verified 10/26/20 13:44 SOB Physical Exam Vitals: Vital Signs Temp Pulse Pulse Resp BP BP Pulse Ox 10/27/20 15:00 97.9 F 66 16 106/58 95 10/27/20 08:12 98.1 F 88 16 117/74 94 L 10/27/20 07:21 98.2 F 83 18 123/73 95 10/27/20 06:00 98.6 F 87 18 127/78 97 10/27/20 05:00 78 18 118/76 96 10/27/20 04:00 76 18 116/72 96 10/27/20 03:00 72 18 118/72 99 10/27/20 00:00 84 18 98 10/26/20 22:42 98.1 F 85 18 121/73 96 Intake and Output 10/27/20 10/27/20 10/27/20 06:59 14:59 22:59 Other: # Voids 2 Weight 62.142 kg - Constitutional General appearance: no acute distress - EENT Eyes: EOMI - Neck Neck: no lymphadenopathy - Respiratory Respiratory: bilateral: CTA - Cardiovascular Rhythm: regular Heart sounds: normal: S1, S2 Abnormal Heart Sounds: no S3 Gallop - Gastrointestinal General gastrointestinal: soft, no tenderness - Neurologic Neurologic: CNII-XII intact - Psychiatric Psychiatric: A&O x's 3 Results CBC & Chem 7: 10/27/20 04:46 10/26/20 18:42 Labs: Abnormal Lab Results - Last 24 Hours (Table) 10/26/20 10/26/20 10/27/20 Range/Units 18:42 22:56 04:46 HDL Cholesterol 38.0 L (40.0-60.0) mg/dL Procalcitonin 0.22 H (0.02-0.09) ng/mL Urine Appearance Cloudy H (Clear) Urine Protein 1+ H (Negative) Urine Ketones 3+ H (Negative) Urine Bacteria Occasional H (None) /hpf Urine Mucus Many H (None) /hpf Thrombosis Risk Factor Assmnt - Choose All That Apply Each Factor Represents 1 point: Age 41-60 years Thrombosis Risk Factor Assessment Total Risk Factor Score: 1 Thrombosis Risk Factor Assessment Level: Low Risk Assessment and Plan (1) Chest pain Current Visit: Yes Status: Acute Code(s): R07.9 - CHEST PAIN, UNSPECIFIED SNOMED Code(s): 33200853 (2) Asthma Current Visit: No Status: Acute Code(s): J45.909 - UNSPECIFIED ASTHMA, UNCOMPLICATED SNOMED Code(s): 190455143 Plan: She seems clinically stable with her Covid. Rule out myocardial infarction. Appreciate cardiology input. We will continue to follow. Prognosis is somewhat guarded Time with Patient: Greater than 30
[2020-10-28] MEDS: HYDROcodone/APAP 5-325MG 1 EACH TAB PO PRN (05:30)
--- NOTE | 2020-10-28 07:14 | ECHOF ---
Referral Reason:chest pain MEASUREMENTS -------- HEIGHT: 165.1 cm WEIGHT: 62.1 kg BP: 111/74 RVIDd: 2.1 cm (< 3.3) IVSd: 1.0 cm (0.6 - 1.1) LVIDd: 3.7 cm (3.9 - 5.3) LVPWd: 1.0 cm (0.6 - 1.1) IVSs: 1.6 cm LVIDs: 2.4 cm LVPWs: 1.5 cm LA Diam: 2.9 cm (2.7 - 3.8) LAESV Index (A-L): 14.56 ml/m Ao Diam: 3.0 cm (2.0 - 3.7) AV Cusp: 2.0 cm (1.5 - 2.6) MV EXCURSION: 15.792 mm (> 18.000) MV EF SLOPE: 64 mm/s (70 - 150) EPSS: 0.3 cm MV E Obed: 0.84 m/s MV DecT: 293 ms MV A Obed: 0.97 m/s MV E/A Ratio: 0.87 FINDINGS -------- Sinus rhythm. This was a technically adequate study. The left ventricular size is normal. Left ventricular wall thickness is normal. Overall left vent ricular systolic function is normal with, an EF between 55 - 60 %. The diastolic filling pattern is normal for the age of the patient 10.33. The right ventricle is normal in size. Normal LA size by volume 22+/-6 ml/m2. The right atrial size is normal. Interatrial and interventricular septum intact. The aortic valve is trileaflet, and appears structurally normal. No aortic stenosis or regurgitation. The mitral valve is normal. There is trace to mild mitral regurgitation. The tricuspid valve appears structurally normal. Trace tricuspid regurgitation present. The pulmonic valve was not well visualized. There is no pulmonic regurgitation present. The aortic root size is normal. Normal inferior vena cava with normal inspiratory collapse consistent with estimated right atrial pre ssure of 5 mmHg. There is no pericardial effusion. CONCLUSIONS -------- 1. Left ventricular wall thickness is normal. 2. Overall left ventricular systolic function is normal with, an EF between 55 - 60 %. 3. Normal LA size by volume 22+/-6 ml/m2. 4. The aortic valve is trileaflet, and appears structurally normal. No aortic stenosis or regurgitati on. 5. There is trace to mild mitral regurgitation. 6. There is no pericardial effusion. ENGINEERING SYSTEMS ANALYST: Patti Elizabeth RDCS
[2020-10-28 07:58] VITALS: BP 101/68; PULSE 71; RESP 16; TEMP 98
--- NOTE | 2020-10-28 08:11 | P.DS ---
Providers Date of admission: 10/26/20 13:19 Attending physician: Surya Florian Consults: 10/26/20 13:19 Consult Physician Urgent Consulting Provider: Vimal Degroot Consult Reason/Comments: cp Do you want consulting provider notified?: Yes Primary care physician: Surya Florian - Discharge Diagnosis(es) (1) Chest pain Current Visit: Yes Status: Acute (2) Asthma Current Visit: No Status: Acute Hospital Course: This discharge summary 42-year-old white female centimeter for chest pain.: Positivity was also noted. The patient was stabilized from a cardiac perspective no enzymatic elevation of cardiac enzymes was found. Cardiology was consulted and has scheduled for outpatient stress testing. Due to her code positivity at was felt for her to best to cover from that illness first. The patient was discharged on appropriate protocol for COVID-19. Patient Condition at Discharge: Stable Plan - Discharge Summary Discharge Rx Participant: No New Discharge Prescriptions: New Aspirin 81 mg PO DAILY chew Metoprolol Succinate (ER) [Toprol XL] 12.5 mg PO DAILY #30 tab.er.24h Ascorbic Acid [Vitamin C] 500 mg PO DAILY #30 tab Zinc Sulfate [Orazinc] 220 mg PO DAILY #30 cap Cholecalciferol [Vitamin D3 (25 Mcg = 1000 Iu)] 25 mcg PO DAILY #30 tablet Continue amLODIPine BESYLATE/BENAZEPRIL [amLODIPine BESYLATE/BENAZEPRIL 5-10 MG] 1 cap PO DAILY Discharge Medication List amLODIPine BESYLATE/BENAZEPRIL [amLODIPine BESYLATE/BENAZEPRIL 5-10 MG] 1 cap PO DAILY 10/26/20 [History] Ascorbic Acid [Vitamin C] 500 mg PO DAILY #30 tab 10/28/20 [Rx] Aspirin 81 mg PO DAILY chew 10/28/20 [Rx] Cholecalciferol [Vitamin D3 (25 Mcg = 1000 Iu)] 25 mcg PO DAILY #30 tablet 10/28/20 [Rx] Metoprolol Succinate (ER) [Toprol XL] 12.5 mg PO DAILY #30 tab.er.24h 10/28/20 [Rx] Zinc Sulfate [Orazinc] 220 mg PO DAILY #30 cap 10/28/20 [Rx] Follow up Appointment(s)/Referral(s): Vimal Degroot DO [STAFF PHYSICIAN] - 3 Weeks Surya Florian MD [Primary Care Provider] - 3 Days Activity/Diet/Wound Care/Special Instructions: outpatient stress test Discharge Disposition: HOME SELF-CARE
[2020-10-28] MEDS: ENOXAPARIN 40 MG/0.4 ML SYRINGE SQ SCH (08:54)
[2020-10-28] MEDS: PANTOPRAZOLE 40 MG TABLET PO SCH (08:54)
[2020-10-28] MEDS: CHOLECALCIFEROL 25 MCG (1000 IU) TABLET PO SCH (08:54)
[2020-10-28] MEDS: lisinopriL 10 MG TAB PO SCH (08:54)
[2020-10-28] MEDS: METOPROLOL SUCCINATE (ER) 25 MG TAB.ER.24H PO SCH (08:54)
[2020-10-28] MEDS: amLODIPine 5 MG TAB PO SCH (08:55)
[2020-10-28] MEDS: ASCORBIC ACID 500 MG TAB PO SCH (08:55)
[2020-10-28] MEDS: ZINC SULFATE 220 MG CAP PO SCH (08:55)
[2020-10-28] MEDS ORDERED: ASPIRIN 81 MG PO SCH (09:00)
== END 2020-10-28 10:40 | disposition home or self-care (01) ==
LOC: EC 11:17 → 6NMEDSUR 13:19
PROVIDERS: ADMIT Family Medicine; ATTEND Family Medicine
DX: R07.89 Other chest pain (principal); U07.1 COVID-19; J84.9 Interstitial pulmonary disease, unspecified; I10 Essential (primary) hypertension; J45.909 Unspecified asthma, uncomplicated; R00.0 Tachycardia, unspecified; I25.10 Atherosclerotic heart disease of native coronary artery without angina pectoris; M19.90 Unspecified osteoarthritis, unspecified site; I45.10 Unspecified right bundle-branch block; R73.09 Other abnormal glucose; R79.82 Elevated C-reactive protein (CRP); Z79.899 Other long term (current) drug therapy; Z88.0 Allergy status to penicillin; Z95.1 Presence of aortocoronary bypass graft; Z87.01 Personal history of pneumonia (recurrent); Z87.891 Personal history of nicotine dependence; Z98.890 Other specified postprocedural states; Z80.1 Family history of malignant neoplasm of trachea, bronchus and lung; Z82.49 Family history of ischemic heart disease and other diseases of the circulatory system
CPT/HCPCS: 96372 ×3; 93005 ×3; 99285; 36415; 93306; 85379; 80061; 80053; 83735; 84484; 85025 ×2; 85610; 85730; 86140; 81001; 84145; 87635; 71046; 71250; G0378 ×3; J1650 ×3

== ENCOUNTER → 2024-09-05 | Outpatient (CLI) | payer OTHER ==
--- NOTE | 2024-09-05 10:48 | MM ---
Reason for Exam: Additional evaluation requested from abnormal screening. Last screening mammogram was performed less than 1 month ago. Patient History: Menarche at age 13. First Full-Term at age 21. Postmenopausal. Mother had breast cancer, age 40. Risk Values: Shannan 5 year model risk: 2.2%. NCI Lifetime model risk: 16.9%. Prior Study Comparison: 01/13/2017 Left Diagnostic Mammogram, [facility]. 08/22/2024 Bilateral MG screening mammo w CAD, [facility]. Tissue Density: The breasts are heterogeneously dense, which may obscure small masses. Findings: Analyzed By CAD. On the right, subareolar focal asymmetry disperses. No persisting abnormality is seen. Findings compatible with superimposition shadow. On the left, the questioned centrally located asymmetric density middle depth also disperses compatible with superimposition shadow. Overall Assessment: Benign, BI-RAD 2 Management: Screening Mammogram of both breasts in 1 year. Results were given to the patient verbally at the time of exam. Patient should continue monthly self-breast exams. A clinical breast exam by your physician is recommended on an annual basis. This exam should not preclude additional follow-up of suspicious palpable abnormalities. Note on Shannan scores and lifetime risk: 1. A Shannna score greater than 3% is considered moderate risk. If this is the case, consider specialist referral to assess eligibility for a risk reducing agent. 2. If overall lifetime risk for the development of breast cancer is 20% or higher, the patient may qualify for future screening with alternating mammogram and breast MRI. [facility], , 09/05/2024 10:44 AM. Electronically signed and approved by: Fabi Covington M.D. Radiologist
== END | disposition home or self-care (01) ==
LOC: RADMAMWWP 10:20
PROVIDERS: ATTEND Family Medicine
DX: R92.8 Other abnormal and inconclusive findings on diagnostic imaging of breast (principal); R92.333 Mammographic heterogeneous density, bilateral breasts; Z78.0 Asymptomatic menopausal state; Z80.3 Family history of malignant neoplasm of breast
CPT/HCPCS: 77062; 77066